=== PATIENT | male | born 1950 | race Caucasian/White ===

== ENCOUNTER 2016-11-20 12:04 | Emergency (ER) | payer MEDICARE, MEDICAID ==
--- NOTE | 2016-11-20 12:22 | ERPHSYRPT ---
- History of Present Illness Time Seen by Provider: 11/20/16 12:08 Source: patient, EMS, old records Exam Limitations: clinical condition Patient Subjective Stated Complaint: HYPOTENSION Triage Nursing Assessment: PER AMBULANCE CREW, PT HAD A MANUAL PRESSURE OF 90/ 45. SHE STATED A MACHINE PRESSURE OF 120 AND A DOCUMENTED PRESSURE FROM FACILITY OF 105 BUT MANAUL PRESSURE GOT DOWN TO 82. ON ARRIVAL, COUGH NOTED AND MANAUL PRESSURE OPF 121/49. PER [facility] WHEN I CALLED FOR REPORT, PT HAD BEEN AT [facility] SINCE 11/07 AND HAD B/P OF 90'S REPEATEDLY THROUGHOUT STAY. PT HAS MOIST COUGH WITH NO PRODUCTION. SKIN DRY AND WARM--PULSE 68. Timing/Duration: today Severity: mild Associated Symptoms: denies symptoms Allergies/Adverse Reactions: fluphenazine Allergy (Verified 11/20/16 12:16) Penicillins Allergy (Verified 11/20/16 12:16) tuberculin,PPD,multi-puncture Allergy (Verified 11/20/16 12:16) - Review of Systems Constitutional: No Symptoms Eyes: No Symptoms Ears, Nose, & Throat: No Symptoms Respiratory: Cough Cardiac: No Symptoms Abdominal/Gastrointestinal: No Symptoms Musculoskeletal: No Symptoms Skin: No Symptoms Neurological: Other (baseline dementia) Psychological: Memory Loss Endocrine: No Symptoms Hematologic/Lymphatic: No Symptoms Immunological/Allergic: No Symptoms - Past Medical History Pertinent Past Medical History: Yes Neurological History: Alzheimer's Disease Endocrine Medical History: Hypothyroidism Psycho-Social History: Other - Past Surgical History Past Surgical History: No - Social History Smoking Status: Unknown if ever smoked Drug Use: none - Nursing Vital Signs Nursing Vital Signs: Initial Vital Signs Temperature 97.6 F Temperature Source Oral Pulse Rate 68 Respiratory Rate 18 Blood Pressure [Right Arm] 121/49 Pain Intensity 0 - Physical Exam General Appearance: no apparent distress Eye Exam: eyes nml inspection Ears, Nose, Throat Exam: normal ENT inspection, pharynx normal, moist mucous membranes Neck Exam: normal inspection, non-tender, supple, full range of motion Respiratory Exam: normal breath sounds, lungs clear, other (upper airway congestion clears with cough) Cardiovascular Exam: regular rate/rhythm, normal heart sounds, normal peripheral pulses Gastrointestinal/Abdomen Exam: soft, normal bowel sounds Back Exam: normal inspection, normal range of motion Extremity Exam: normal inspection, normal range of motion, pelvis stable, pedal edema (1+) Neurologic Exam: alert, cooperative, other (Baseline demnted state) SpO2: 96 Oxygen Delivery: Room Air - Course Nursing assessment & vital signs reviewed: Yes - Progress Progress: improved Progress Note: 11/20/16 12:19 Pt. had large amount urination upon arrival here. 11/20/16 12:22 11/20/16 12:22 [facility], The facility where he is being transported notified by me. I spoke with Janessa Mccord there. She requests copy of our ED note, which we will provide. EMS transport notified to continue en route now that his BP is 121.49 here and he is medically cleared for discharge. Discussed with : Maricel ([facility]) Counseled pt/family regarding: need for follow-up - Departure Time of Disposition: 12:28 Departure Disposition: Transfer, Extended Care Facility Clinical Impression: Normotensive Condition: Stable Critical Care Time: No
[2016-11-20 12:38] VITALS: BP 101/68; PULSE 79; O2SAT 98
== END 2016-11-20 12:40 | disposition home or self-care (01) ==
LOC: ED 12:04
DX: Z03.89 Encounter for observation for other suspected diseases and conditions ruled out (principal)
CPT/HCPCS: 99281